=== PATIENT | male | born 1995 | race Caucasian/White ===

== ENCOUNTER 2016-06-08 18:10 | Emergency (ER) | payer OTHER ==
[~2016-06-08] VITALS: Ht 175.3 cm; Wt 99.8 kg
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
[2016-06-08 18:36] LABS: MEAN PLATELET VOLUME 10.6 FL (7.4-10.4); RED BLOOD COUNT 4.65 10^6/uL (4.35-5.85); RED CELL DISTRIBUTION WIDTH 12.7 % (10.0-14.5); WHITE BLOOD COUNT 17.8 10^3/uL (4.3-11.0)
[2016-06-08] MEDS ORDERED: HYDROmorphone (DILAUDID) 2 MG/ML VIAL ONE (18:40)
[2016-06-08 18:45] LABS: PROTHROMBIN TIME PATIENT 13.2 SEC (12.2-14.7)
[2016-06-08] MEDS ORDERED: HYDROmorphone (DILAUDID) 2 MG/ML VIAL IVP ONE ×3 (18:45→21:00)
[2016-06-08 18:53] LABS: ALANINE AMINOTRANSFERASE 24 U/L (0-55); ALBUMIN 4.1 G/DL (3.2-4.5); ANION GAP 13 MMOL/L (5-14); ASPARTATE AMINO TRANSFERASE 27 U/L (5-34); BILIRUBIN,DIRECT 0.1 MG/DL (0.0-0.3); BILIRUBIN,INDIRECT 0.2 MG/DL; BILIRUBIN,TOTAL 0.3 MG/DL (0.1-1.0); BLOOD UREA NITROGEN 19 MG/DL (7-18); BUN/CREATININE RATIO 19; CALCIUM 8.9 MG/DL (8.5-10.1); CARBON DIOXIDE 20 MMOL/L (21-32); CHLORIDE 109 MMOL/L (98-107); CREATININE SERUM 1.01 MG/DL (0.60-1.30); GFR ESTIMATED > 60; GLUCOSE 141 MG/DL (70-105); POTASSIUM 3.7 MMOL/L (3.6-5.0); SODIUM 142 MMOL/L (135-145); TOTAL PROTEIN 6.5 G/DL (6.4-8.2)
[2016-06-08 18:55] LABS: ALCOHOL < 10 MG/DL (<10)
[2016-06-08] MEDS ORDERED: NS IV 1000 ML 1,000 ML IV SCH (19:00)
[2016-06-08] MEDS ORDERED: ceFAZolin 2 GM/50 ML NS 50 ML IV ONE (19:00)
[2016-06-08] MEDS ORDERED: NS 100 ML (IVPB) BAG IV ONE (19:00)
[2016-06-08] MEDS ORDERED: IOHEXOL 350 MG/ML 100 ML (OMNIPAQUE 350) VIAL IV ONE (19:00)
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
[2016-06-08] MEDS ORDERED: TETANUS,DIPTH,PERTUSS P/F (BOOSTRIX) 0.5 ML VIAL IM ONE (19:45)
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
[2016-06-08 21:14] VITALS: BP 139/87
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
== END 2016-06-08 21:14 | disposition short-term general hospital (02) ==
LOC: EDUNIT# 18:10 → ER 18:11
DX: S72.24XA Nondisplaced subtrochanteric fracture of right femur, initial encounter for closed fracture (principal); S71.102A Unspecified open wound, left thigh, initial encounter; W34.09XA Accidental discharge from other specified firearms, initial encounter; Y99.8 Other external cause status
CPT/HCPCS: 36415; 72170; 72193; 73552; 80048; 80076; 80320; 85027; 85610; 85730; 86850; 86900; 86901; 90471; 90715; 96361; 96365; 96375; 96376

== ENCOUNTER 2016-07-08 12:39 | Emergency (ER) | payer OTHER ==
[~2016-07-08] VITALS: Ht 175.3 cm; Wt 99.8 kg
[2016-07-08] MEDS ORDERED: OXYC5TAB71 (12:48)
[2016-07-08] MEDS ORDERED: NS IV 1000 ML 1,000 ML IV SCH (13:15)
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
[2016-07-08 13:29] LABS: BASOPHILS % (AUTO) 0 % (0-10); EOSINOPHILS % (AUTO) 0 % (0-10); LYMPHOCYTES # (AUTO) 1.7 X 10^3 (1.0-4.0); LYMPHOCYTES % (AUTO) 16 % (12-44); MEAN CORPUSCULAR HEMOGLOBIN 29 PG (25-34); MEAN CORPUSCULAR HGB CONC 33 G/DL (32-36); MEAN CORPUSCULAR VOLUME 88 FL (80-99); MEAN PLATELET VOLUME 10.2 FL (7.4-10.4); MONOCYTES # (AUTO) 0.4 X 10^3 (0.0-1.0); MONOCYTES % (AUTO) 4 % (0-12); NEUTROPHILS # (AUTO) 8.6 X 10^3 (1.8-7.8); NEUTROPHILS % (AUTO) 80 % (42-75); PLATELET COUNT 352 10^3/uL (130-400); RED BLOOD COUNT 4.63 10^6/uL (4.35-5.85); WHITE BLOOD COUNT 10.8 10^3/uL (4.3-11.0)
[2016-07-08] MEDS ORDERED: NS 100 ML (IVPB) BAG IV ONE (13:30)
[2016-07-08] MEDS ORDERED: CATHETER FLUSH 10 ML SYR IV PRN (13:30)
[2016-07-08] MEDS ORDERED: IOHEXOL 350 MG/ML 100 ML (OMNIPAQUE 350) VIAL IV ONE (13:30)
[2016-07-08 13:48] LABS: ALANINE AMINOTRANSFERASE 19 U/L (0-55); ALBUMIN 4.5 G/DL (3.2-4.5); ANION GAP 10 MMOL/L (5-14); ASPARTATE AMINO TRANSFERASE 26 U/L (5-34); BILIRUBIN,TOTAL 0.3 MG/DL (0.1-1.0); BLOOD UREA NITROGEN 15 MG/DL (7-18); BUN/CREATININE RATIO 17; CALCIUM 9.5 MG/DL (8.5-10.1); CARBON DIOXIDE 21 MMOL/L (21-32); CHLORIDE 109 MMOL/L (98-107); CREATININE SERUM 0.87 MG/DL (0.60-1.30); GFR ESTIMATED > 60; GLUCOSE 102 MG/DL (70-105); POTASSIUM 4.4 MMOL/L (3.6-5.0); SODIUM 140 MMOL/L (135-145); TOTAL PROTEIN 7.9 G/DL (6.4-8.2)
[2016-07-08 14:29] LABS: BILIRUBIN,URINE NEGATIVE (NEGATIVE); KETONES,URINE NEGATIVE (NEGATIVE); LEUKOCYTE ESTERASE ,URINE NEGATIVE (NEGATIVE); NITRITE,URINE NEGATIVE (NEGATIVE); PH,URINE 7 (5-9); PROTEIN,URINE NEGATIVE (NEGATIVE); UROBILINOGEN,URINE NORMAL (NORMAL)
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
[2016-07-08 15:40] VITALS: BP 138/84
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
== END 2016-07-08 15:40 | disposition home or self-care (01) ==
LOC: EDUNIT# 12:39 → ER 12:42
DX: N20.1 Calculus of ureter (principal); Z98.1 Arthrodesis status
CPT/HCPCS: 36415; 74177; 80053; 81000; 85025; 96360

== ENCOUNTER 2016-09-12 12:53 | Outpatient (RCR) | payer OTHER ==
[~2016-09-12 12:53] MED LIST: OXYC5TAB71
== END 2016-09-12 13:39 | disposition home or self-care (01) ==
PROVIDERS: ATTEND Orthopaedic Surgery
DX: S72.24XD Nondisplaced subtrochanteric fracture of right femur, subsequent encounter for closed fracture with routine healing (principal); W34.09XD Accidental discharge from other specified firearms, subsequent encounter; Y99.8 Other external cause status

== ENCOUNTER 2020-02-20 09:18 | Inpatient (IN) | payer OTHER ==
[~2020-02-20] VITALS: Ht 177 cm; Wt 88.0 kg
[~2020-02-20 09:18] MED LIST changes: +OXC5T; -OXYC5TAB71
[2020-02-20] MEDS ORDERED: NS IV 1000 ML 1,000 ML IV SCH ×2 (09:40→15:13)
[2020-02-20] MEDS ORDERED: LACTATED RINGERS 1,000 ML IV ONE (09:40)
[2020-02-20] MEDS ORDERED: VANCOMYCIN INJECTION 1,000 MG in NS (IVPB) 250 ML IV ONE (09:45)
[2020-02-20] MEDS ORDERED: CEFEPIME INJECTION 1,000 MG in WATER (STERILE) FOR INJECTION 10 ML IV ONE (09:45)
[2020-02-20] MEDS ORDERED: IBUPROFEN 800 MG (MOTRIN) TAB PO ONE (09:45)
--- NOTE | 2020-02-20 09:49 | ED General ---
General Stated Complaint: FEVER / COUGH Source of Information: Patient Exam Limitations: No Limitations History of Present Illness Date Seen by Provider: Feb 20, 2020 Time Seen by Provider: 09:31 Initial Comments The patient presents to the ER by private conveyance with chief complaint of a fever of 102 today. He was having temperatures of 99 and body aches yesterday. He was released on , approximately 4 days ago from the hospital after spending a week and therefore type I diabetic ketoacidosis. He was not intubated. He is still on a nystatin mouth wash for thrush and Levaquin. He's having a cough minor shortness of air but no pain beyond body aches. He was given some ibuprofen use for pain but he says he has not used it and has had no antipyretics today. He does not have a history of HIV or other immunocompromise. He takes insulin glargine and lispro. He is also noted in the last day or so his blood sugars have been significantly elevated which he says he usually associates with an infection. He denies dysuria nausea vomiting diarrhea or constipation. He already has disrupted sense of taste and smell due to the oral thrush. He does not take any other medications nor have any other significant medical history. He quit smoking last week when he was hospitalized. He denies alcohol or drug use. He states he had a negative COVID-19 swab last week while he was in the hospital. Allergies and Home Medications Allergies Coded Allergies: No Known Drug Allergies (Unverified , 06/08/16) Patient Home Medication List Home Medication List Reviewed: Yes Review of Systems Review of Systems Constitutional: chills, fever, malaise EENTM: No ear discharge, No ear pain Respiratory: cough, short of breath Cardiovascular: No chest pain, No edema, No Hx of Intervention Gastrointestinal: No abdominal pain, No nausea, No vomiting Genitourinary: No discharge, No dysuria Musculoskeletal: No back pain, No joint pain Psychiatric/Neurological: Denies Anxiety, Denies Depressed All Other Systems Reviewed Negative Unless Noted: Yes Past Tjrotyf-Lcmznq-Csrhzq Hx Patient Social History Alcohol Use: Denies Use Recreational Drug Use: No Smoking Status: Current Everyday Smoker Type Used: Cigarettes Recent Foreign Travel: No Contact w/Someone Who Travel: No Recent Hopitalizations: Yes (1 month ago femur surgery) Past Medical History Orthopedic Reproductive Disorders: No Sexually Transmitted Disease: No Physical Exam-Suspected Sepsis Physical Exam Vital Signs Vital Signs - First Documented 02/20/20 09:30 Temp 38.6 Pulse 140 Resp 20 B/P (MAP) 140/92 (108) Pulse Ox 97 O2 Delivery Room Air Capillary Refill : Height, Weight, BMI Height: 5'9" Weight: 220lbs. oz. 99.039797xn; 32.48 BMI Method:Stated General Appearance: WD/WN, Mild Distress Eyes: Bilateral Eye Normal Inspection, Bilateral Eye PERRL, Bilateral Eye EOMI HEENT: PERRL/EOMI, TMs Normal, Normal ENT Inspection, Moist Mucous Membranes, Pharyngeal Erythema (moderate), Tonsillar Exudate (scant) Neck: Full Range of Motion, Normal Inspection, Non Tender Respiratory: Lungs Clear, Normal Breath Sounds, No Accessory Muscle Use, No Respiratory Distress Cardiovascular: Regular Rate, Rhythm, No Edema, Normal Peripheral Pulses Extremity: Normal Capillary Refill, Normal Inspection, No Pedal Edema Neurologic/Psychiatric: Alert, Oriented x3 Skin: normal color, warm/dry Focused Exam Lactate Level 02/20/20 09:48: Lactic Acid Level 1.17 Lactic Acid Level Laboratory Tests Test 02/20/20 09:48 Lactic Acid Level 1.17 MMOL/L (0.50-2.00) Progress/Results/Core Measures Suspected Sepsis SIRS Temperature: Pulse: Respiratory Rate: Laboratory Tests 02/20/20 09:48: White Blood Count 11.4H Blood Pressure / Mean: 02/20/20 09:48: Lactic Acid Level 1.17 Laboratory Tests 02/20/20 09:48: Creatinine 0.95, INR Comment 1.1, Platelet Count 336, Total Bilirubin 0.6 Results/Orders Lab Results Laboratory Tests Test 02/20/20 09:38 02/20/20 09:40 02/20/20 09:48 02/20/20 11:14 Range/Units Group A Streptococcus Screen NEGATIVE NEGATIVE Coronavirus 2019 (FOREIGN) Negative Negative White Blood Count 11.4 H 4.3-11.0 10^3/uL Red Blood Count 4.71 4.30-5.52 10^6/uL Hemoglobin 15.5 13.3-17.7 g/dL Hematocrit 43 40-54 % Mean Corpuscular Volume 91 80-99 fL Mean Corpuscular Hemoglobin 33 25-34 pg Mean Corpuscular Hemoglobin Concent 36 32-36 g/dL Red Cell Distribution Width 11.1 10.0-14.5 % Platelet Count 336 130-400 10^3/uL Mean Platelet Volume 10.3 9.0-12.2 fL Immature Granulocyte % (Auto) 0 % Neutrophils (%) (Auto) 79 H 42-75 % Lymphocytes (%) (Auto) 11 L 12-44 % Monocytes (%) (Auto) 9 0-12 % Eosinophils (%) (Auto) 0 0-10 % Basophils (%) (Auto) 0 0-10 % Neutrophils # (Auto) 9.1 H 1.8-7.8 10^3/uL Lymphocytes # (Auto) 1.3 1.0-4.0 10^3/uL Monocytes # (Auto) 1.0 0.0-1.0 10^3/uL Eosinophils # (Auto) 0.0 0.0-0.3 10^3/uL Basophils # (Auto) 0.0 0.0-0.1 10^3/uL Immature Granulocyte # (Auto) 0.0 0.0-0.1 10^3/uL Prothrombin Time 14.3 12.2-14.7 SEC INR Comment 1.1 0.8-1.4 Activated Partial Thromboplast Time 33 24-35 SEC D-Dimer 0.73 H 0.00-0.49 UG/ML Sodium Level 132 L 135-145 MMOL/L Potassium Level 3.6 3.6-5.0 MMOL/L Chloride Level 96 L 98-107 MMOL/L Carbon Dioxide Level 18 L 21-32 MMOL/L Anion Gap 18 H 5-14 MMOL/L Blood Urea Nitrogen 6 L 7-18 MG/DL Creatinine 0.95 0.60-1.30 MG/DL Estimat Glomerular Filtration Rate > 60 BUN/Creatinine Ratio 6 Glucose Level 272 H 70-105 MG/DL Lactic Acid Level 1.17 0.50-2.00 MMOL/L Calcium Level 8.9 8.5-10.1 MG/DL Corrected Calcium 9.0 8.5-10.1 MG/DL Total Bilirubin 0.6 0.1-1.0 MG/DL Aspartate Amino Transf (AST/SGOT) 24 5-34 U/L Alanine Aminotransferase (ALT/SGPT) 13 0-55 U/L Alkaline Phosphatase 76 40-136 U/L C-Reactive Protein High Sensitivity 5.30 H 0.00-0.50 MG/DL Total Protein 7.1 6.4-8.2 GM/DL Albumin 3.9 3.2-4.5 GM/DL Procalcitonin 0.11 H <0.10 NG/ML Urine Color YELLOW Urine Clarity CLEAR Urine pH 6.0 5-9 Urine Specific Declo >=1.030 1.016-1.022 Urine Protein 1+ H NEGATIVE Urine Glucose (UA) 3+ H NEGATIVE Urine Ketones 3+ H NEGATIVE Urine Nitrite NEGATIVE NEGATIVE Urine Bilirubin NEGATIVE NEGATIVE Urine Urobilinogen 0.2 < = 1.0 MG/DL Urine Leukocyte Esterase NEGATIVE NEGATIVE Urine RBC (Auto) NEGATIVE NEGATIVE Urine RBC NONE /HPF Urine WBC NONE /HPF Urine Squamous Epithelial Cells RARE /HPF Urine Crystals NONE /LPF Urine Bacteria NEGATIVE /HPF Urine Casts NONE /LPF Urine Mucus SMALL H /LPF Urine Culture Indicated CULTURE PENDING Urine Opiates Screen POSITIVE H NEGATIVE Urine Oxycodone Screen NEGATIVE NEGATIVE Urine Methadone Screen NEGATIVE NEGATIVE Urine Propoxyphene Screen NEGATIVE NEGATIVE Urine Barbiturates Screen NEGATIVE NEGATIVE Ur Tricyclic Antidepressants Screen NEGATIVE NEGATIVE Urine Phencyclidine Screen NEGATIVE NEGATIVE Urine Amphetamines Screen NEGATIVE NEGATIVE Urine Methamphetamines Screen NEGATIVE NEGATIVE Urine Benzodiazepines Screen NEGATIVE NEGATIVE Urine Cocaine Screen POSITIVE H NEGATIVE Urine Cannabinoids Screen POSITIVE H NEGATIVE Test 02/20/20 12:30 Range/Units Glucometer 195 H 70-110 MG/DL Micro Results Microbiology 02/20/20 Influenza Types A,B Antigen ([facility]) - Final, Complete My Orders Orders - ROSANA MARAVILLA Cbc With Automated Diff (02/20/20 09:40) Comprehensive Metabolic Panel (02/20/20 09:40) Blood Culture (02/20/20 09:40) Sputum Culture (02/20/20 09:40) Urinalysis (02/20/20 09:40) Urine Culture (02/20/20 09:40) Protime With Inr (02/20/20 09:40) Partial Thromboplastin Time (02/20/20 09:40) Chest 1 View, Ap/Pa Only (02/20/20 09:40) Ed Iv/Invasive Line Start (02/20/20 09:40) Ed Iv/Invasive Line Start (02/20/20 09:40) Vital Signs Adult Sepsis Patie Q15M (02/20/20 09:40) O2 (02/20/20 09:40) Remove Rings In Anticipation O (02/20/20 09:40) Lactic Acid Analyzer (02/20/20 09:40) Ns Iv 1000 Ml (Sodium Chloride 0.9%) (02/20/20 09:40) Cefepime Injection (Maxipime Injection) (02/20/20 09:45) Vancomycin Injection (Vancomycin Injecti (02/20/20 09:45) Vancomycin Injection (Vancomycin Injecti (02/20/20 10:45) Ed Iv/Invasive Line Start (02/20/20 09:40) Lactated Ringers (Lr 1000 Ml Iv Solution (02/20/20 09:40) Hs C Reactive Protein (02/20/20 09:40) Procalcitonin (Pct) (02/20/20 09:40) Covid 19 Inhouse Test (02/20/20 09:40) Influenza A And B Antigens (02/20/20 09:40) Rapid Strep A Screen (02/20/20 09:40) Ibuprofen Tablet (Motrin Tablet) (02/20/20 09:45) Drug Screen Stat (Urine) (02/20/20 09:50) Fibrin Degradation Products (02/20/20 09:50) Accucheck Stat ONCE (02/20/20 12:22) Oseltamivir 75 Mg Capsule (Tamiflu 75 (02/20/20 21:00) D5 1/2 Ns W/Kcl 20 Meq/L (Dextrose 5%/0. (02/20/20 12:45) Insulin (Regular) Human (Novolin R (Per (02/20/20 12:31) Insulin Regular Drip (Myxredlin 100 Unit (02/20/20 12:45) Medications Given in ED Current Medications Medications Dose Ordered Sig/[place] Route Start Time Stop Time Status Last Admin Dose Admin Cefepime HCl 1000 mg/Sterile Water 10 ml @ 200 mls/hr ONCE ONCE IV 02/20/20 09:45 02/20/20 09:47 DC 02/20/20 10:01 200 MLS/HR Ibuprofen 800 mg ONCE ONCE PO 02/20/20 09:45 02/20/20 09:46 DC 02/20/20 10:00 800 MG Lactated Ringer's 1,000 ml @ 0 mls/hr Q0M ONCE IV 02/20/20 09:40 02/20/20 09:45 DC 02/20/20 09:57 0 MLS/HR Vancomycin HCl 750 mg/Sodium Chloride 250 ml @ 250 mls/hr ONCE ONCE IV 02/20/20 10:45 02/20/20 11:44 DC 02/20/20 12:00 250 MLS/HR Vancomycin HCl 1000 mg/Sodium Chloride 250 ml @ 250 mls/hr ONCE ONCE IV 02/20/20 09:45 02/20/20 10:44 DC 02/20/20 10:07 250 MLS/HR Vital Signs/I&O 02/20/20 09:30 Temp 38.6 Pulse 140 Resp 20 B/P (MAP) 140/92 (108) Pulse Ox 97 O2 Delivery Room Air Capillary Refill : Progress Note #1: Time: 09:48 Progress Note Tachycardia, fever prompt a septic workup. Plan to hit him with a couple liters of fluid which is between 20 and 30 mL/kg. Broad-spectrum antibiotics. Infl uenza, COVID-19, rapid strep, pro calcitonin, CRP. We'll get urine drug screen to rule out secondary causes of tachycardia. There is a possibility could be going back into diabetic ketoacidosis with his tachycardia related to an infection. He has a cough but otherwise the source is as of yet unclear. Because of his recent hospitalization plan to cover him with vancomycin. 800 mg ib uprofen for his fever. Progress Note #2: Time: 12:24 Progress Note Influenza and DKA. We will recheck another blood sugar before we give any initial bolus insulin. He has received his IV fluid bolus of 2 L. Diagnostic Imaging Diagonstic Imaging: Xray Plain Films/CT/US/NM/MRI: chest Comments NAME: FREDDIE MARIE [facility] REC#: [id number] PT STATUS: REG ER : 1995 PHYSICIAN: ROSANA MARAVILLA MD ADMIT DATE: 02/20/20/ER Draft Date of Exam:02/20/20 CHEST 1 VIEW, AP/PA ONLY Indication: Cough and fever. Time of exam 10:24 AM No prior studies are available for comparison. The heart size is normal. The pulmonary vascularity is unremarkable. The lungs are clear. No infiltrate, effusion or pneumothorax is detected. Impression: No acute cardiopulmonary process is detected. Dictated on workstation # [id number] Dict: 02/20/20 1033 Trans: 02/20/20 1038 [facility] [id number] Interpreted by: FARHANA RAGSDALE MD Electronically signed by: Reviewed: Reviewed by Me Departure Communication (Admissions) Time/Spoke to Admitting Phy: 12:40 Discussed the case with Dr. Byrne and she agrees with insulin drip in the ICU and Tamiflu. We are holding IV antibiotics. Impression Primary Impression: Influenza B Additional Impression: DKA, type 1 Qualified Codes: E10.10 - Type 1 diabetes mellitus with ketoacidosis without coma Disposition: ADMITTED INPATIENT Condition: Stable Admissions Decision to Admit Reason: Admit from ER (General) Decision to Admit/Date: Feb 20, 2020 Time/Decision to Admit Time: 12:00 Departure-Patient Inst. Referrals: KIMBERLEE PRUITT MD (PCP/Family) Primary Care Physician ROSANA MARAVILLA Feb 20, 2020 09:49
[2020-02-20 09:59] LABS: BASOPHILS % (AUTO) 0 % (0-10); EOSINOPHILS % (AUTO) 0 % (0-10); HEMATOCRIT 43 % (40-54); HEMOGLOBIN 15.5 g/dL (13.3-17.7); LYMPHOCYTES # (AUTO) 1.3 10^3/uL (1.0-4.0); LYMPHOCYTES % (AUTO) 11 % (12-44); MEAN CORPUSCULAR HEMOGLOBIN 33 pg (25-34); MEAN CORPUSCULAR HGB CONC 36 g/dL (32-36); MEAN CORPUSCULAR VOLUME 91 fL (80-99); MEAN PLATELET VOLUME 10.3 fL (9.0-12.2); MONOCYTES % (AUTO) 9 % (0-12); NEUTROPHILS # (AUTO) 9.1 10^3/uL (1.8-7.8); NEUTROPHILS % (AUTO) 79 % (42-75); PLATELET COUNT 336 10^3/uL (130-400); WHITE BLOOD COUNT 11.4 10^3/uL (4.3-11.0)
[2020-02-20 10:08] LABS: ALBUMIN 3.9 GM/DL (3.2-4.5); CHLORIDE 96 MMOL/L (98-107); POTASSIUM 3.6 MMOL/L (3.6-5.0); SODIUM 132 MMOL/L (135-145)
[2020-02-20 10:10] LABS: CALCIUM 8.9 MG/DL (8.5-10.1)
[2020-02-20 10:11] LABS: GLUCOSE 272 MG/DL (70-105); TOTAL PROTEIN 7.1 GM/DL (6.4-8.2)
[2020-02-20 10:12] LABS: CARBON DIOXIDE 18 MMOL/L (21-32)
[2020-02-20 10:13] LABS: BILIRUBIN,TOTAL 0.6 MG/DL (0.1-1.0)
[2020-02-20 10:14] LABS: ALKALINE PHOSPHATASE 76 U/L (40-136)
[2020-02-20 10:15] LABS: CREATININE SERUM 0.95 MG/DL (0.60-1.30); GFR ESTIMATED > 60
[2020-02-20 10:16] LABS: BUN/CREATININE RATIO 6
[2020-02-20 10:17] LABS: ALANINE AMINOTRANSFERASE 13 U/L (0-55)
--- NOTE | 2020-02-20 10:38 | Diagnostic Imaging Report ---
Indication: Cough and fever. Time of exam 10:24 AM No prior studies are available for comparison. The heart size is normal. The pulmonary vascularity is unremarkable. The lungs are clear. No infiltrate, effusion or pneumothorax is detected. Impression: No acute cardiopulmonary process is detected. Dictated by: Dictated on workstation # [id number]
[2020-02-20] MEDS ORDERED: VANCOMYCIN INJECTION 750 MG in NS (IVPB) 250 ML IV ONE (10:45)
[2020-02-20 11:10] LABS: FIBRIN DEGRADATION PRODUCTS 0.73 UG/ML (0.00-0.49); INR 1.1 (0.8-1.4); PROTHROMBIN TIME PATIENT 14.3 SEC (12.2-14.7)
[2020-02-20 11:25] LABS: BILIRUBIN,URINE NEGATIVE (NEGATIVE); CLARITY,URINE CLEAR; COLOR,URINE YELLOW; GLUCOSE, URINE (UA) 3+ (NEGATIVE); KETONES,URINE 3+ (NEGATIVE); LEUKOCYTE ESTERASE ,URINE NEGATIVE (NEGATIVE); NITRITE,URINE NEGATIVE (NEGATIVE); PROTEIN,URINE 1+ (NEGATIVE)
[2020-02-20 11:41] LABS: AMPHETAMINE SCREEN, URINE NEGATIVE (NEGATIVE); BARBITURATE SCREEN URINE NEGATIVE (NEGATIVE); BENZODIAZEPINES SCREEN URINE NEGATIVE (NEGATIVE); CANNABINOID SCREEN, URINE POSITIVE (NEGATIVE); COCAINE SCREEN URINE POSITIVE (NEGATIVE); METHADONE STAT NEGATIVE (NEGATIVE); METHAMPHETAMINE SCREEN URINE S NEGATIVE (NEGATIVE); OPIATE SCREEN URINE POSITIVE (NEGATIVE); OXYCODONE STAT NEGATIVE (NEGATIVE); PROPOXYPHENE STAT NEGATIVE (NEGATIVE); TRICYCLIC ANTIDEPRESSANTS SCRE NEGATIVE (NEGATIVE)
[2020-02-20 11:57] LABS: BACTERIA,URINE NEGATIVE /HPF; SQUAMOUS EPITHELIAL CELL,UR RARE /HPF
[2020-02-20] MEDS ORDERED: inSUlin (REGULAR) HUMAN 1 UNIT/0.01 ML (CHARGE PER UNIT) IV STA (12:31)
[2020-02-20] MEDS: D5 1/2 NS W/KCL 20 MEQ/L 1,000 ML IV SCH ×3 (13:04→22:07)
[2020-02-20] MEDS ORDERED: OSELTAMIVIR 75 MG (TAMIFLU) CAPSULE ONE (13:39)
[2020-02-20] MEDS: OSELTAMIVIR 75 MG (TAMIFLU) CAPSULE PO SCH (13:44)
[2020-02-20] MEDS ORDERED: D5 1/2 NS 1000 ML IV SOLUTION 1,000 ML IV ONE (14:52)
--- NOTE | 2020-02-20 14:57 | NUR ---
SARAIJONLISA PERSAUDKE Ga admitted to room CU10-1, with an admitting diagnosis of DKA, on 02/20/20 from [place] via [facility], accompanied by STAFF.FREDDIE MARIE introduced to surroundings, call light, bed controls, phone, TV, temperature control, lights, meal times, smoking policy, visitor policy, side rail policy, bathrooms and showers. Patient Rights given to patient in the handbook. FREDDIE MARIE verbalizes understanding that [facility] is not responsible for the loss or damage to any personal effects or valuables that are kept in the patients posession during their hospitalization. The following Patient Care Plans were discussed with the PT: Discharge Planning. FREDDIE MARIE verbalizes understanding of Interdisciplinary Patient Education. Patient and/or family were informed about the Rapid Response Team and its purpose.
[2020-02-20 15:04] LABS: HEMOGLOBIN 11.8 g/dL (13.3-17.7); MEAN PLATELET VOLUME 10.1 fL (9.0-12.2); WHITE BLOOD COUNT 7.3 10^3/uL (4.3-11.0)
[2020-02-20] MEDS ORDERED: D5 1/2 NS 1000 ML IV SOLUTION 1,000 ML IV SCH (15:15)
[2020-02-20] MEDS ORDERED: ONDANSETRON 4 MG/2 ML (SDV) Z0FRAN IVP PRN (15:15)
[2020-02-20] MEDS ORDERED: FLU QUADRIvalent (3YOA+) 60 mcg/0.5 ml 2020-21 (AFLURIA) IM ONE (15:15)
[2020-02-20] MEDS ORDERED: POTASSIUM CL 10MEQ/50ML IVPB 50 ML IV SCH (15:15)
[2020-02-20] MEDS ORDERED: ACETAMINOPHEN 325 MG TABLET PO PRN (15:15)
[2020-02-20] MEDS ORDERED: morphine INJ 4 MG/ML 1 ML (VIAL/SYRINGE) IVP PRN (15:15)
[2020-02-20] MEDS: POTASSIUM CL 10MEQ/50ML IVPB 50 ML IV SCH ×5 (16:15→23:09)
[2020-02-20] MEDS: 1/2 NS IV SOLUTION 1,000 ML IV SCH ×3 (16:16→23:37)
[2020-02-20 16:53] LABS: CHLORIDE 101 MMOL/L (98-107)
[2020-02-20 16:54] LABS: POTASSIUM 4.2 MMOL/L (3.6-5.0); SODIUM 137 MMOL/L (135-145)
[2020-02-20 16:55] LABS: CALCIUM 8.6 MG/DL (8.5-10.1); GLUCOSE 219 MG/DL (70-105)
[2020-02-20 16:57] LABS: CARBON DIOXIDE 21 MMOL/L (21-32)
[2020-02-20 16:59] LABS: CREATININE SERUM 0.83 MG/DL (0.60-1.30); GFR ESTIMATED > 60
[2020-02-20 17:00] LABS: BUN/CREATININE RATIO 7
[2020-02-20 22:27] LABS: CHLORIDE 105 MMOL/L (98-107); POTASSIUM 3.2 MMOL/L (3.6-5.0); SODIUM 138 MMOL/L (135-145)
[2020-02-20 22:28] LABS: CALCIUM 8.1 MG/DL (8.5-10.1); GLUCOSE 77 MG/DL (70-105)
[2020-02-20 22:30] LABS: CARBON DIOXIDE 22 MMOL/L (21-32)
[2020-02-20 22:32] LABS: CREATININE SERUM 0.64 MG/DL (0.60-1.30); GFR ESTIMATED > 60
[2020-02-20 22:33] LABS: BUN/CREATININE RATIO 5
[2020-02-20] MEDS: IBUPROFEN 800 MG (MOTRIN) TAB PO PRN (23:07)
[2020-02-21] MEDS: D5 1/2 NS W/KCL 20 MEQ/L 1,000 ML IV SCH ×2 (01:28→04:55)
[2020-02-21 03:24] LABS: BASOPHILS % (AUTO) 0 % (0-10); EOSINOPHILS % (AUTO) 0 % (0-10); HEMATOCRIT 36 % (40-54); HEMOGLOBIN 12.6 g/dL (13.3-17.7); LYMPHOCYTES # (AUTO) 1.4 10^3/uL (1.0-4.0); LYMPHOCYTES % (AUTO) 21 % (12-44); MEAN CORPUSCULAR HEMOGLOBIN 33 pg (25-34); MEAN CORPUSCULAR HGB CONC 35 g/dL (32-36); MEAN CORPUSCULAR VOLUME 94 fL (80-99); MEAN PLATELET VOLUME 10.4 fL (9.0-12.2); MONOCYTES # (AUTO) 0.8 10^3/uL (0.0-1.0); MONOCYTES % (AUTO) 11 % (0-12); NEUTROPHILS # (AUTO) 4.6 10^3/uL (1.8-7.8); NEUTROPHILS % (AUTO) 67 % (42-75); PLATELET COUNT 240 10^3/uL (130-400); WHITE BLOOD COUNT 6.9 10^3/uL (4.3-11.0)
[2020-02-21] MEDS: 1/2 NS IV SOLUTION 1,000 ML IV SCH (03:37)
[2020-02-21 03:43] LABS: CHLORIDE 104 MMOL/L (98-107); POTASSIUM 3.5 MMOL/L (3.6-5.0); SODIUM 137 MMOL/L (135-145)
[2020-02-21 03:44] LABS: CALCIUM 8.4 MG/DL (8.5-10.1)
[2020-02-21 03:45] LABS: GLUCOSE 254 MG/DL (70-105)
[2020-02-21 03:46] LABS: CARBON DIOXIDE 22 MMOL/L (21-32)
[2020-02-21 03:48] LABS: PHOSPHORUS 3.6 MG/DL (2.3-4.7)
[2020-02-21 03:49] LABS: CREATININE SERUM 0.71 MG/DL (0.60-1.30); GFR ESTIMATED > 60
[2020-02-21 03:50] LABS: BUN/CREATININE RATIO 4
--- NOTE | 2020-02-21 05:42 | Pulmonary Consultation ---
History of Present Illness History of Present Illness Date Seen by Provider: Feb 21, 2020 Time Seen by Provider: 05:40 Date of Admission Allergies and Home Medications Allergies Coded Allergies: No Known Drug Allergies (Unverified , 06/08/16) Past Tvcwbnz-Hwpeki-Xzyvmk Hx Patient Social History Alcohol Use: Denies Use Recreational Drug Use: No Smoking Status: Current Everyday Smoker Type Used: Cigarettes Former Smoker, Quit: Feb 14, 2020 Recent Foreign Travel: No Contact w/Someone Who Travel: No Recent Infectious Disease Expo: No Recent Hopitalizations: Yes (1 month ago femur surgery) Past Medical History Surgeries: Yes (back, R femur) Orthopedic Respiratory: No Cardiac: No Neurological: No Reproductive Disorders: No Sexually Transmitted Disease: No Genitourinary: No Gastrointestinal: No Musculoskeletal: No Endocrine: Yes Diabetes, Insulin dep HEENT: No Cancer: No Psychosocial: No Integumentary: No Blood Disorders: No Review of Systems Time Seen by Provider: 05:41 Sepsis Event Evaluation Height, Weight, BMI Height: 5'9" Weight: 220lbs. oz. 99.481320al; 27.00 BMI Method:Stated Exam Exam Vital Signs Date Time Temp Pulse Resp B/P (MAP) Pulse Ox O2 Delivery O2 Flow Rate FiO2 02/21/20 04:00 66 12 114/79 97 Room Air 02/21/20 03:00 64 14 110/71 96 Room Air 02/21/20 02:00 92 14 152/96 98 Room Air 02/21/20 01:00 106 02/21/20 01:00 106 22 133/93 93 Room Air 02/21/20 00:17 37.0 02/21/20 00:00 86 19 126/92 95 Room Air 02/20/20 23:00 83 17 128/86 96 Room Air 02/20/20 22:12 101 17 142/89 96 Room Air 02/20/20 22:11 37.0 02/20/20 21:02 37.0 02/20/20 21:00 93 97 Room Air 02/20/20 21:00 Room Air 02/20/20 20:30 101 10 153/92 99 Room Air 02/20/20 20:00 39.1 02/20/20 20:00 110 16 140/97 98 Room Air 02/20/20 19:00 96 15 103/84 98 Room Air 02/20/20 19:00 103 11/15/20 18:00 97 24 143/101 96 Room Air 02/20/20 17:00 99 12 145/88 100 Room Air 02/20/20 16:00 82 12 126/77 99 Room Air 02/20/20 15:00 98 16 132/81 98 Room Air 02/20/20 14:45 90 21 109/80 97 Room Air 02/20/20 14:29 82 16 127/77 97 Room Air 02/20/20 09:30 38.6 140 20 140/92 (108) 97 Room Air I & O 02/21/20 07:00 Intake Total 4960 ml Output Total 1900 ml Balance 3060 ml Height & Weight Height: 5'9" Weight: 220lbs. oz. 99.326669gb; 27.00 BMI Method:Stated General Appearance: WD/WN, Mild Distress HEENT: PERRL/EOMI, TMs Normal, Normal ENT Inspection, Moist Mucous Membranes, Pharyngeal Erythema (moderate), Tonsillar Exudate (scant) Neck: Full Range of Motion, Normal Inspection, Non Tender Respiratory: Lungs Clear, Normal Breath Sounds, No Accessory Muscle Use, No Respiratory Distress Cardiovascular: Regular Rate, Rhythm, No Edema, Normal Peripheral Pulses Capillary Refill: Less Than 3 Seconds Extremity: Normal Capillary Refill, Normal Inspection, No Pedal Edema Neurologic/Psychiatric: Alert, Oriented x3 Results Lab Laboratory Tests 02/20/20 09:48 02/20/20 14:50 02/20/20 16:38 02/20/20 22:10 02/21/20 03:14 Assessment/Plan Assessment/Plan DKA - resolved -Insulin gtt d/c'd per EICU Thrush -Start nyastatin SS Methamphetamine and marijuana use -Education Transfer to 4th floor. ANALIA FORRESTER DO Feb 21, 2020 05:42
[2020-02-21] MEDS ORDERED: KCL 20 MEQ TAB (K-DUR) PO SCH (06:00)
[2020-02-21] MEDS ORDERED: MAGNESIUM 1 GM/100 ML IVPB 100 ML IV SCH (06:00)
[2020-02-21] MEDS: NYSTATIN ORAL SUSP 5 ML UDC PO SCH ×3 (06:00→16:53)
[2020-02-21] MEDS ORDERED: POTASSIUM CL 10MEQ/50ML IVPB 50 ML IV SCH (06:00)
[2020-02-21] MEDS: inSUlin ASPART (NovoLOG) 1 UNIT/0.01 ML (CHARGE PER UNIT) SQ SCH ×4 (06:46→20:43)
[2020-02-21] MEDS: IBUPROFEN 800 MG (MOTRIN) TAB PO PRN (08:26)
[2020-02-21] MEDS: OSELTAMIVIR 75 MG (TAMIFLU) CAPSULE PO SCH ×2 (08:27→20:57)
--- NOTE | 2020-02-21 08:27 | History & Physical ---
History of Present Illness History of Present Illness Reason for visit/HPI 24 yo M with Diabetes Mellitus 1.5 as previous testing has not determined if he is 1 or 2. Behaves like 1 but his C-peptide was normal. None the less either way he has not been good at taking his medication/insulin resulting in poor glycemic control. He was in [place] for work last week and landed in the hospital there for DKA. He was released on Friday02/18/20. Patient was admitted yesterday to ICU for DKA, influenza B and cocaine, marijuana use. Patient denies any cocaine use. But does use marijuana for pain control. He was monitored on telemetry overnight. would like him to have an insulin pump in hopes this would help him control his diabetes. Hga1c was 11. He is not eating much because it hurts in his neck to chest area to swallow- feels like something is stuck there. Occurs when he swallows. He would like pain medication for this. Ibuprofen is not helping. He feels morphine would help. We will offer apap in addition to the ibuprofen. Date of Admission Feb 20, 2020 at 12:40 Date Seen by a Provider: Feb 21, 2020 Time Seen by a Provider: 08:27 I consulted on this patient on 02/21/20 08:23 Attending Physician Jen Byrne DO Admitting Physician Bishnu Byrnes MD Consult Allergies and Home Medications Allergies Coded Allergies: No Known Drug Allergies (Unverified , 06/08/16) Home Medications Ibuprofen 400 Mg Tablet, 400 MG PO Q6H PRN for PAIN-MILD (1-4), (Reported) Insulin Glargine,Hum.rec.anlog 100 Unit/1 Ml Insuln.pen, 24 UNITS SQ HS, (Reported) Insulin Lispro 100 Unit/1 Ml Insuln.pen, UNITS SQ TIDWM, (Reported) PER SLIDING SCALE Levofloxacin 500 Mg Tablet, 500 MG PO DAILY, (Reported) PICKED UP 02/17/2020 #5 Nystatin 100,000 Unit/1 Ml Oral.susp, 10 ML PO QID, (Reported) Patient Home Medication List Home Medication List Reviewed: Yes Past Ymbjapl-Schvnd-Zijweu Hx Patient Social History Alcohol Use: Denies Use Recreational Drug Use: No Smoking Status: Current Everyday Smoker Former Smoker, Quit: Feb 14, 2020 Type Used: Cigarettes Recent Foreign Travel: No Contact w/other who traveled: No Recent Hopitalizations: Yes (1 month ago femur surgery) Recent Infectious Disease Expo: No Surgeries Yes (back, R femur) Orthopedic Respiratory No Cardiovascular No Neurological No Reproductive System Hx Reproductive Disorders: No Sexually Transmitted Disease: No Genitourinary No Gastrointestinal No Musculoskeletal No Endocrine History of Endocrine Disorders: Yes Endocrine Disorders: Diabetes, Insulin dep HEENT History of HEENT Disorders: No Cancer No Psychosocial History of Psychiatric Problem: No Integumentary History of Skin or Integumenta: No Blood Transfusions History of Blood Disorders: No Review of Systems Review of Systems General: Chills; No Night Sweats HEENT: Head Aches Pulmonary: No Dyspnea, No Cough; Pleuritic Chest Pain Cardiovascular: Chest Pain; No: Palpitations Gastrointestinal: Abdominal Pain; No: Nausea, Vomiting Genitourinary: No Dysuria Neurological: Weakness All Other Systems Reviewed All Other Systems Reviewed: Yes Physical Exam Vital Signs Vital Signs - First Documented 02/20/20 09:30 Temp 38.6 Pulse 140 Resp 20 B/P (MAP) 140/92 (108) Pulse Ox 97 O2 Delivery Room Air Capillary Refill : Less Than 3 Seconds Height, Weight, BMI Height: 5'9" Weight: 220lbs. oz. 99.637858yg; 27.00 BMI Method:Stated General Appearance: No Apparent Distress HEENT: PERRL/EOMI Neck: Full Range of Motion, Non Tender Respiratory: No Accessory Muscle Use, No Respiratory Distress, Decreased Breath Sounds (left lung upper field) Cardiovascular: Regular Rate, Rhythm, No Edema Gastrointestinal: Non Tender, Soft Back: Normal Inspection Extremity: Non Tender Neurologic/Psychiatric: Alert, Oriented x3 Skin: Normal Color, Warm/Dry Assessment/Plan Assessment/Plan Admission Dx DKA Admission Status: Inpatient Order (span 2 midnights) Reason for Inpatient Admission: Patient was admitted in diabetic ketoacidosis requiring an insulin drip. He was also found to have influenza B. He could decompensate quickly so we will need to monitor him over 2 midnights. He is a diabetic that does not take his medications consistenly so this is another reason we need to monitor him closely. Assessment and Plan DKA protocol- no longer in DKA -insulin gtts stopped overnight -restarted his home insulin regimen. -monitoring bmp to make sure he does not go back into DKA for his dysphagia- CT in [place] did not show anything per patient. Recommend an EGD. Will not be able to perform given his history of drug use and flu +. Will refer on to surgeon for an EGD in near future. Could be esophageal web or stricture. Dispo: plan to discharge to home tomorrow if no new issues develop overnight. Diabetes education talked with him and gave him some information on insulin pump and CGM. Recommend he stop any/all recreational drug use. He really needs to get serious about his diabetes care. Problems: (1) DKA, type 1 Qualifiers: Qualified Codes: E10.10 - Type 1 diabetes mellitus with ketoacidosis without coma (2) Influenza B Assessment & Plan: continue tamiflu (3) Hypokalemia Assessment & Plan: replacing (4) Recreational drug use Assessment & Plan: he denies cocaine usage. -he does smoke marijuana for pain relief. (5) Dysphagia Qualifiers: Qualified Codes: R13.14 - Dysphagia, pharyngoesophageal phase Clinical Quality Measures DVT/VTE Risk/Contraindication: Risk Factor Score Per Nursin RFS Level Per Nursing on Admit: 1=Low/No VTE PPX BISHNU BYRNES MD Feb 21, 2020 08:27
[2020-02-21] MEDS ORDERED: KCL 20 MEQ TAB (K-DUR) PO ONE (09:00)
--- NOTE | 2020-02-21 11:30 | NUR ---
patient resting in bed, rapport established, patient expresses he feels insuling pump would not help him much. pamphlet regarding CGM's & Insulin Pumps along with basic diabetic education given, enc. patient to look through pamphlet, write down questions & concerns, and that I would stop back later today or first thing in the morning to go over questions with patient. Will con't to monitor.
[2020-02-21] MEDS: LEVOFLOXACIN 750 MG TAB (LEVAQUIN) PO SCH (12:32)
[2020-02-21] MEDS ORDERED: NYST1000 PO (13:26)
[2020-02-21] MEDS ORDERED: LEVO500T80 PO (13:26)
[2020-02-21] MEDS ORDERED: INSU100I48 SQ (13:26)
[2020-02-21] MEDS ORDERED: INSU100I34 SQ (13:26)
[2020-02-21] MEDS ORDERED: IBUP-1779 PO (13:26)
--- NOTE | 2020-02-21 13:45 | NUR ---
I SPOKE WITH THE PATIENT ON THE ROOM PHONE AND WENT THROUGH THE EXTERNAL MED HISTORY TO COMPLETE THE MED REC. PATIENT STATES THAT HE ISN'T TAKING ANY OTC MEDICATIONS AT THIS TIME.
--- NOTE | 2020-02-21 14:33 | NUR ---
RD ASSESSMENT PMHx: DM; polysubstance use (cocaine, marijuana); PT INTERACTION: Pt was awake and pleasant during consult for diet education. Pt states current appetite is good. Note avg PO intake 50% x2meal, per chart review. Pt states following a regular diet at home, and has some issues with swallowing food. Pt states no recent issues with nausea, vomiting, constipation, or diarrhea. Note last BM was 02/20, and pt not currently on bowel regimen per chart review. Pt states recent 5-10# wt loss, but unsure of timeframe. Note unable to determine recent wt hx, per chart review. Pt states current DM management is "poor at home." Note unable to determine recent HbA1c, per chart review. ABNORMAL NUTRITION-RELATED LAB VALUES LOW: K 3.5; BUN 3; Ca 8.4; HIGH: glu 195; Est. kcal needs: 0545-3217 kcal | 20-25 kcal/kg Est. Pro needs: 69-87 g Pro | 0.8-1.0 g Pro/kg PES STATEMENT: Inadequate oral intake (NI-2.1) related to loss of appetite as evidenced by pt interview and avg PO intake 50% x2meal. Food- and nutrition-related knowledge deficit (NB-1.1) related to unwilling or disinterested in applying information as evidenced by pt interview. INTERVENTION: Continue with current diet order of CHO 60g/m 3snack diet. Pt may benefit from nutrition supplementation if PO intake declines. Offered and provided diet education on DM management. Discussed CHO counting, portion control, and smartphone applications. Pt verbalized understanding of information provided. Will continue to follow and reassess as pt needs, intake, and status change. Elizabeth Thompson, MS RD LD
--- NOTE | 2020-02-21 17:31 | NUR ---
PT C/O PAIN IN CHEST WHEN SWALLOWING. RN OFFERED IBUPROFEN WHEN ADMIN INSULIN THIS EVENING AND HE DECLINED IBUPROFEN, STATING THAT IBUPROFEN DOES NOT WORK AND THAT HE HAD MORPHINE IN ICU AND THAT HELPED 'A LITTLE'. THIS NURSE [employer] CALLED DR PRUITT ABOUT PAIN AND SAID TO CONTINUE JUST TYLENOL AND IBUPROFEN FOR PAIN, NO NEW ORDERS FOR PAIN MEDICATIONS. DID ASK IF HE HAD ENG AND THIS RN REPORTED THAT PT WAS ON TELEMETRY LAST NIGHT AND THIS MORNING BEFORE TRANSFER TO [facility] [employer], [facility] [employer], HAD REPORTED PT WAS IN SINUS RHYTHM AT THAT TIME. DR PRUITT EXPLAINED THAT PT HAD TESTED POSITIVE FOR COCAINE IN DRUG SCREEN. PT ALSO DECLINED 8U OF NOVOLOG INSULIN TONIGHT AND STATED THAT AT HOME HE ONLY TAKES 3 U. RN SAID THAT IF HE FELT COMFORTABLE ONLY TAKING 3 UNITS I WOULD ONLY ADMIN 3 U AND NOT 8U. PT TOLD ME HE PREFERRED TO ONLY TAKE 3U BC 8U WOULD DROP B/S TOO LOW. PT HAS BEEN EDUCATED, ALONG WITH , WHO CALLED RN THIS AFTERNOON, ON DR PRUITT'S INSULIN ORDER AND SLIDING SCALE AND HOW PTS ARE TYPICALLY NOT ON HOME DOSE OF INSULIN WHILE IN HOSPITAL D/T ILLNESS ETC... DR PRUITT NOTIFIED THAT PT HAD BEEN ASKING ME AND PCT THRU OUT THE DAY WHY HE WAS NOT GETTING INSULIN AT LUNCH AND AFTER LUNCH. PT WAS NOTIFIED HIS BLOOD SUGAR AT LUNCH TIME WAS 174 WHICH DID NOT CALL FOR INSULIN PER S/S. PT THEN INSISTED WHY HE WAS NOT GIVEN INSULIN AFTER HE ATE A MEAL BC HIS B/S GOES UP AFTER HE EATS. PT EDUCATED ON GETTING INSULIN PRIOR TO MEALS AND OUR PROTOCOL. PT DID REPORT HE WILL ONLY TAKE 3 U IF BLOOD SUGAR IS OVER 200 AT HOME. PT NOTIFIED THAT DR PRUITT WOULD NOT BE ORDERING ADDITIONAL PAIN MEDICATION FOR HIM AND HE VERIFIED UNDERSTANDING.
[2020-02-22] MEDS: NYSTATIN ORAL SUSP 5 ML UDC PO SCH ×2 (00:22→05:29)
[2020-02-22 04:54] LABS: BASOPHILS % (AUTO) 0 % (0-10); EOSINOPHILS # (AUTO) 0.1 10^3/uL (0.0-0.3); EOSINOPHILS % (AUTO) 1 % (0-10); HEMATOCRIT 39 % (40-54); HEMOGLOBIN 13.6 g/dL (13.3-17.7); LYMPHOCYTES # (AUTO) 2.7 10^3/uL (1.0-4.0); LYMPHOCYTES % (AUTO) 38 % (12-44); MEAN CORPUSCULAR HEMOGLOBIN 33 pg (25-34); MEAN CORPUSCULAR HGB CONC 35 g/dL (32-36); MEAN CORPUSCULAR VOLUME 93 fL (80-99); MEAN PLATELET VOLUME 10.5 fL (9.0-12.2); MONOCYTES # (AUTO) 1.2 10^3/uL (0.0-1.0); MONOCYTES % (AUTO) 16 % (0-12); NEUTROPHILS # (AUTO) 3.2 10^3/uL (1.8-7.8); NEUTROPHILS % (AUTO) 44 % (42-75); PLATELET COUNT 288 10^3/uL (130-400); WHITE BLOOD COUNT 7.2 10^3/uL (4.3-11.0)
[2020-02-22 05:02] LABS: CHLORIDE 103 MMOL/L (98-107); POTASSIUM 3.5 MMOL/L (3.6-5.0); SODIUM 139 MMOL/L (135-145)
[2020-02-22 05:03] LABS: CALCIUM 8.4 MG/DL (8.5-10.1); GLUCOSE 131 MG/DL (70-105)
[2020-02-22 05:05] LABS: CARBON DIOXIDE 23 MMOL/L (21-32)
[2020-02-22 05:07] LABS: GFR ESTIMATED > 60; PHOSPHORUS 4.3 MG/DL (2.3-4.7)
[2020-02-22 05:08] LABS: BUN/CREATININE RATIO 6
[2020-02-22 05:10] LABS: MAGNESIUM 2.2 MG/DL (1.6-2.4)
[2020-02-22] MEDS: inSUlin ASPART (NovoLOG) 1 UNIT/0.01 ML (CHARGE PER UNIT) SQ SCH (05:36)
--- NOTE | 2020-02-22 08:13 | Diagnostic Imaging Report ---
EXAMINATION: Chest 1 view HISTORY: Dyspnea COMPARISON: Chest radiograph 02/20/2020 FINDINGS: Heart size and pulmonary vasculature are normal. The lungs are clear without consolidation, pleural effusion, or pneumothorax. The osseous structures are intact. IMPRESSION: 1. No acute radiographic abnormality in the chest. Dictated by: Dictated on workstation # [id number]
[2020-02-22] MEDS: LEVOFLOXACIN 750 MG TAB (LEVAQUIN) PO SCH (08:46)
[2020-02-22] MEDS: OSELTAMIVIR 75 MG (TAMIFLU) CAPSULE PO SCH (08:47)
--- NOTE | 2020-02-22 09:59 | Discharge Summary ---
Discharge Summary Hospital Course Was the Problem List Reviewed?: Yes Problems/Dx: (1) DKA, type 1 Status: Resolved Qualifiers: Qualified Codes: E10.10 - Type 1 diabetes mellitus with ketoacidosis without coma (2) Influenza B Status: Acute (3) Hypokalemia Status: Resolved (4) Recreational drug use (5) Dysphagia Status: Acute Qualifiers: Qualified Codes: R13.14 - Dysphagia, pharyngoesophageal phase Hospital Course Date of Admission: Feb 20, 2020 at 12:40 Admission Diagnosis : Family Physician/Provider: Bishnu Pruitt MD Date of Discharge: 02/22/20 Discharge Diagnosis: [ ] Hospital Course: [ ] Labs and Pending Lab Test: Laboratory Tests 02/21/20 12:21: Glucometer 174H 02/21/20 15:30: Beta-Hydroxybutyrate (Chem panel) 0.50H 02/21/20 15:45: Glucometer 298H 02/21/20 20:10: Glucometer 264H 02/22/20 00:30: Glucometer 146H 02/22/20 04:40: White Blood Count 7.2, Red Blood Count 4.16L, Hemoglobin 13.6, Hematocrit 39L, Mean Corpuscular Volume 93, Mean Corpuscular Hemoglobin 33, Mean Corpuscular Hemoglobin Concent 35, Red Cell Distribution Width 11.5, Platelet Count 288, Mean Platelet Volume 10.5, Immature Granulocyte % (Auto) 0, Neutrophils (%) (Auto) 44, Lymphocytes (%) (Auto) 38, Monocytes (%) (Auto) 16H, Eosinophils (%) (Auto) 1, Basophils (%) (Auto) 0, Neutrophils # (Auto) 3.2, Lymphocytes # (Auto) 2.7, Monocytes # (Auto) 1.2H, Eosinophils # (Auto) 0.1, Basophils # (Auto) 0.0, Immature Granulocyte # (Auto) 0.0, Sodium Level 139, Potassium Level 3.5L, Chloride Level 103, Carbon Dioxide Level 23, Anion Gap 13, Blood Urea Nitrogen 4L, Creatinine 0.70, Estimat Glomerular Filtration Rate > 60, BUN/Creatinine Ratio 6, Glucose Level 131H, Calcium Level 8.4L, Phosphorus Level 4.3, Magnesium Level 2.2 Microbiology 02/20/20 MRSA Screen - Final, Complete MRSA not isolated 02/20/20 Urine Culture - Final, Complete NO GROWTH 02/20/20 Blood Culture - Preliminary, Resulted No growth Home Meds Active Reported Basaglar Kwikpen U-100 (Insulin Glargine,Hum.rec.anlog) 100 Unit/1 Ml Insuln.pen 24 Units SQ HS Insulin Lispro Kwikpen U-100 (Insulin Lispro) 100 Unit/1 Ml Insuln.pen Units SQ TIDWM PER SLIDING SCALE Levofloxacin 500 Mg Tablet 500 Mg PO DAILY PICKED UP 02/17/2020 #5 Nystatin 100,000 Unit/1 Ml Oral.susp 10 Ml PO QID Ibuprofen 400 Mg Tablet 400 Mg PO Q6H PRN Assessment/Pt Instructions Follow up at [facility] in 2 weeks to discuss- CGM monitoring- Dexcom G6. In interval need to pay closer attention to his diabetes and administering insulin. Recommend stopping any recreational drug use. Balanced ADA diet. Follow up in [address] Rosenberg, surgeon for dysphagia evaluation if the nystatin does not resolve his symptoms. Discharge Planning: >30 minutes discharge planning Discharge Instructions Discharge Diet: ADA Diet Pneumonia Vaccine Order Indica: Yes Discharge Physical Examination Vital Signs Vital Signs Date Time Temp Pulse Resp B/P (MAP) Pulse Ox O2 Delivery O2 Flow Rate FiO2 02/22/20 08:48 Room Air 02/22/20 08:09 36.8 92 18 138/89 100 General Appearance: No Apparent Distress Respiratory: Chest Non Tender, Lungs Clear (left lung breath sounds much improved ) Cardiovascular: Regular Rate, Rhythm Gastrointestinal: Normal Bowel Sounds, Non Tender, Soft Extremity: Non Tender Skin: Warm/Dry Neurologic/Psychiatric: Alert, Oriented x3 Allergies: Coded Allergies: No Known Drug Allergies (Unverified , 06/08/16) Discharge Summary Date of Admission Feb 20, 2020 at 12:40 Date of Discharge Discharge Diagnosis (1) DKA, type 1 Status: Resolved Qualifiers: Qualified Codes: E10.10 - Type 1 diabetes mellitus with ketoacidosis without coma (2) Influenza B Status: Acute Assessment & Plan: continue tamiflu (3) Hypokalemia Status: Resolved Assessment & Plan: replacing (4) Recreational drug use Assessment & Plan: he denies cocaine usage. -he does smoke marijuana for pain relief. (5) Dysphagia Status: Acute Qualifiers: Qualified Codes: R13.14 - Dysphagia, pharyngoesophageal phase Clinical Quality Measures DVT/VTE Risk/Contraindication: Risk Factor Score Per Nursin RFS Level Per Nursing on Admit: 1=Low/No VTE PPX BISHNU PRUITT MD Feb 22, 2020 09:59
[2020-02-22 11:35] VITALS: BP 138/89
== END 2020-02-22 11:38 | disposition home or self-care (01) | DRG 193 ==
LOC: EDUNIT# 09:18 → ER 09:19 → ICU 12:40 → 4TH 02-21 07:16
PROVIDERS: ADMIT Family Medicine; ATTEND Family Medicine
DX: J10.1 Influenza due to other identified influenza virus with other respiratory manifestations (principal); E10.10 Type 1 diabetes mellitus with ketoacidosis without coma; B37.0 Candidal stomatitis; R13.10 Dysphagia, unspecified; E87.6 Hypokalemia; Z20.828 Contact with and (suspected) exposure to other viral communicable diseases; F17.210 Nicotine dependence, cigarettes, uncomplicated; F15.90 Other stimulant use, unspecified, uncomplicated; F12.90 Cannabis use, unspecified, uncomplicated; Z79.4 Long term (current) use of insulin
CPT/HCPCS: 36415; 71045; 80048; 80053; 80306; 81000; 82010; 82962; 83036; 83605; 83735; 84100; 84145; 85025; 85027; 85379; 85610; 85730; 86141; 87040; 87081; 87088; 87430; 87635; 87804